=== PATIENT | male | born 1940 | race Caucasian/White ===

== ENCOUNTER → 2024-01-16 09:56 | Outpatient (BNVA) | payer OTHER, SELFPAY | PROVIDERS: Referring Provider Nurse Practitioner; Visit Provider Surgery | DX: R13.10 Dysphagia, unspecified (principal) | CPT/HCPCS: 99204 ==

== ENCOUNTER 2024-03-05 09:40 | Outpatient (CLI) | payer OTHER, SELFPAY ==
--- NOTE | 2024-03-05 11:00 | FL_ITS ---
WS: [id number] FL barium swallow modifd [id number] REASON FOR EXAM: Difficulty swallowing. FLUOROSCOPY TIME: 2min [id number] # OF SPOT FILMS: 0 FINDINGS: Examination was supervised by the speech therapy department. The patient was examined in the sitting upright lateral position. The swallowing of barium of multiple consistencies was performed under fluoroscopic control and video recorded. No aspiration. 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 FL/FL barium swallow modifd [id number] IMPRESSION: Intraluminal cervical esophageal mass. A detailed report of the swallowing will be rendered by the speech therapy depa rtment.
== END 2024-03-05 09:41 | disposition home or self-care (01) ==
PROVIDERS: Visit Provider Surgery
DX: R13.10 Dysphagia, unspecified (principal); R22.9 Localized swelling, mass and lump, unspecified
CPT/HCPCS: 74230; 92611

== ENCOUNTER → 2024-03-06 11:35 | Outpatient (BNVA) | payer OTHER, SELFPAY | PROVIDERS: Visit Provider Surgery | DX: Z09 Encounter for follow-up examination after completed treatment for conditions other than malignant neoplasm (principal) | CPT/HCPCS: 99214 ==

== ENCOUNTER 2024-03-13 08:01 | Day surgery (SDC) | payer OTHER, SELFPAY ==
--- NOTE | 2024-03-13 08:14 | W.PM.OPSUD ---
Surgery/Procedure H&P Update DATE OF PROCEDURE: March 13, 2024 DATE H&P PERFORMED: 03/06/24 H&P UPDATE INFORMATION: I have reviewed H&P completed within last 30 days, I have examined patient prior to procedure, No changes to prior documentation and [place] is in [facility] [place] PLANNED PROCEDURE: Operation Date: 03/13/24 09:40 Proposed Procedures p EGD 06923, R13.10(Not Applicable) - Kye Mcwilliams MD
[2024-03-13 08:21] VITALS: BP 101/72; PULSE 114; RESP 18; TEMP 36.1; O2SAT 97; BMI 23.0
--- NOTE | 2024-03-13 08:44 | ANES.PREANE2 ---
Pre-Anesthetic Assessment Height/Weight: Height 5 ft 7 in Weight 147 lb Temp Pulse Resp BP Pulse Ox O2 Del Method 97.0 F L 114 H 18 101/72 97 Room Air 03/13/24 08:21 03/13/24 08:21 03/13/24 08:21 03/13/24 08:21 03/13/24 08:21 03/13/24 08:21 Preop Diagnosis: Difficulty swallowing Operation Date: 03/13/24 09:40 Proposed Procedures p EGD 52923, R13.10(Not Applicable) - Kye Mcwilliams MD Was Beta Joanna taken within 24 hours: N/A Was Clonidine taken within 24 hours: N/A Last intake: Intake Last Liquid Date 03/12/24 Last Liquid Time 21:00 Last Solid Date 03/12/24 Last Solid Time 08:00 Social No alcohol and No tobacco Exam alert, oriented x 3, clear to auscultation bilaterally and regular rate & rhythm Airway Submandibular: within normal limits Cervical ROM: within normal limits Mallampati: Class II Comments: Comments: No upper teeth, poor bottom dentition, denies any loose Anesthetic Plan ASA status: 2 Anesthesia: MAC Other: No prior issues with anesthesia NPO since yesterday Patient has been having difficulty swallowing Prior DVT, on chronic Xarelto. Last taken 03/09/2024 Patient also reports having a mass behind his right eye that was identified recently by ophthalmology. Patient is able to perform ADLs Plan for MAC anesthetic Medications/Allergies Home Medications Medication Instructions Recorded Confirmed Last Taken Type rivaroxaban 20 mg tablet (Xarelto) 20 mg PO DAILY 01/16/24 03/11/24 03/09/24 History Allergies Allergy/AdvReac Type Severity Reaction Status Date / Time acetaminophen [From Percocet] Allergy tongue Verified 03/13/24 08:18 swelling oxycodone [From Percocet] Allergy tongue Verified 03/13/24 08:18 swelling PFSH Anesthesia Social History Smoking and tobacco/nicotine status: never used tobacco/nicotine Data Anesthesia Cardiac Studies: No Data to Display
[2024-03-13 09:38] VITALS: BP 84/61; PULSE 82; RESP 14; TEMP 36.1; O2SAT 100
[2024-03-13 09:53] VITALS: BP 96/67; PULSE 77; RESP 16; O2SAT 97
[2024-03-13 10:00] VITALS: BP 100/64; PULSE 85; RESP 14; O2SAT 99
--- NOTE | 2024-03-13 11:00 | ANE.PACU2 ---
Inpatient post-anesthesia follow up: Airway intact: Yes Vital signs: Temperature 97 F Pulse Rate 85 Respiratory Rate 14 Blood Pressure 100/64 Pulse Oximetry 99 Oxygen Delivery Me thod Room Air Oxygen Flow Rate Fraction of Inspir ed Oxygen Hydration adequate: Yes Nausea and vomiting: No Pain level: 1 Mental status: Baseline
== END 2024-03-13 11:00 | disposition home or self-care (01) ==
PROVIDERS: Visit Provider Surgery
PROC: 0DJ08ZZ Inspection of Upper Intestinal Tract, Via Natural or Artificial Opening Endoscopic (ICD-10-PCS; principal; 2024-03-13 09:40)
DX: R13.10 Dysphagia, unspecified (principal); K31.7 Polyp of stomach and duodenum; K29.50 Unspecified chronic gastritis without bleeding; Z86.718 Personal history of other venous thrombosis and embolism; Z79.01 Long term (current) use of anticoagulants
CPT/HCPCS: 43239; 88305; 88342

== ENCOUNTER → 2024-03-25 10:58 | Outpatient (BNVA) | payer OTHER, SELFPAY | PROVIDERS: Visit Provider Surgery | DX: Z09 Encounter for follow-up examination after completed treatment for conditions other than malignant neoplasm (principal) | CPT/HCPCS: 99213 ==